=== PATIENT | female | born 1980 | race Caucasian/White ===

== ENCOUNTER → 2022-10-25 14:40 | Outpatient (REF) | payer OTHER, SELFPAY ==
--- NOTE | 2022-10-25 14:52 | CA_ITS ---
Transthoracic Echocardiogram Patient (Last, First, Middle): Marysol Fabian, Gender: Female Date of : 1980 Age: 42 Procedure Date: 10/25/2022 Procedure Type: Transthoracic Echocardiogram Location: [place] Height: 160.02 cm Weight: 68.04 kg BSA: 1.71 m2 Heart Rate: bpm BP: 120 / 80 mmHg Structural Steel Engineer: SHERLY Romo MD: JENNIFER GRANDE Wicker Worker: Eddie Caceres MD Symptoms: PALPITATIONS Study Quality: Adequate ECG Rhythm: Sinus Conclusions: - Essentially normal study Findings Left Ventricle Normal left ventricular size, thickness, and systolic function. The visually estimated ejection fraction is between 55-60%. Spectral Doppler is indicative of a normal filling pattern. Right Ventricle Normal right ventricular cavity size and systolic function. Atria Both atria are normal in size. There is no evidence of interatrial shunt. Aortic Valve Normal aortic valve structure and function. There is no aortic valve stenosis. There is no aortic valve regurgitation. Mitral Valve Normal mitral valve structure and function. There is trace mitral valve regurgitation. There is no mitral valve stenosis. Pulmonic Valve The pulmonic valve is likely normal. Tricuspid Valve Likely normal tricuspid valve structure and function. Tricuspid regurgitation envelope is inadequate for calculation of right ventricular systolic pressure. Normal right atrial pressure. Great Vessels All visible segments of the aorta are normal in size. The pulmonary artery was not well visualized. Venous The inferior vena cava is normal in size and collapses greater than 50% with inspiration. Pericardium/Pleural There is no evidence of pericardial effusion. Prior Study Comparison No prior study available for comparison. Measurements 2D Linear Measurements IVSd: 1.07 0.6-0.9/0.6-1.0 cm LVIDd: 4.01 3.9-5.3/4.2-5.9 cm LVIDd Index: 2.35 2.4-3.2/2.2-3.1 cm/m2 LVIDs: 2.85 2.0-3.6 cm LVPWd: 0.90 0.7-1.1 cm LA Diam: 2.70 2.7-3.8/3.0-4.0 cm LAIDs Index: 1.58 1.5-2.3 cm/m2 LV Mass: 155.79 67-162/88-224 g LV Mass Index: 91.10 43-95/49-115 g/m2 LVOT Diam: 1.90 3.0+(-)1.3 cm 2D Systolic Function EF 4C: 56.30 >55% EF 2C: 62.20 >55% EF BiP: 59.30 >55% Mitral Valve MV Pk E: 0.63 MV PK A: 0.59 MV Decel Time: 195.00 E/A: 1.10 E'Lateral: 8.59 E'Medial: 9.68 E/E' Med: 6.50 E/E' Lat: 7.30 PHT: 57.00 MVA PHT: 3.86 Decel [place]: 3.20 Aortic Valve AoV Pk Hi: 1.23 AoV Mn Hi: 0.86 AoV VTI: 0.22 AoV Pk Grad: 6.00 Aov Mn Grad: 3.00 DELON Cont.VTI: 1.79 LVOT LVOT Pk Hi: 0.75 LVOT Mn Hi: 0.51 LVOT VTI: 0.14 LVOT Pk Grad: 2.00 LVOT Mn Grad: 1.00 LVOT Diam: 1.90 LVOT Area: 2.84 Diastolic Function MV Pk E: 0.63 MV Pk A: 0.59 E/A: 1.10 E'Medial: 9.68 E/E' Med: 6.50 E' Laterial: 8.59 E/E' Lat: 7.30 Right Ventricle TAPSE (mm): 17.80 TVS' Hi: 10.20 Tricuspid Valve RA Press: 3.00 Great Vessels Aorta Sinus of Valsalva: 2.90 2.0-3.5 cm Ao Asc: 2.90 2.1-3.4 cm Pulmonary Valve PV Pk Hi: 0.90 Peak PV Grad: 3.00 Updated in Other Vendor System with Status of Final Eddie Caceres MD electronically signed on 10/27/2022 12:22:24 PM with status of Final
== END ==
LOC: HO.CARD 14:40
PROVIDERS: Visit Provider Family Medicine
DX: R00.2 Palpitations (principal)
CPT/HCPCS: 93306

== ENCOUNTER → 2022-10-25 14:52 | Outpatient (BNV) | payer OTHER, SELFPAY | PROVIDERS: Visit Provider Internal Medicine Cardiovascular Disease | DX: R00.2 Palpitations (principal) | CPT/HCPCS: 93306 ==